=== PATIENT | male | born 1965 | race Caucasian/White ===

== ENCOUNTER 2020-10-06 16:43 | Emergency (ER) | payer OTHER ==
[~2020-10-06] VITALS: Ht 182.9 cm; Wt 117.9 kg
== END 2020-10-06 17:50 | disposition home or self-care (01) ==
LOC: ER 16:43
DX: K42.9 Umbilical hernia without obstruction or gangrene (principal); Z88.6 Allergy status to analgesic agent; Z88.5 Allergy status to narcotic agent
CPT/HCPCS: 99282

== ENCOUNTER 2020-12-21 06:42 | Day surgery (SDC) | payer OTHER ==
[~2020-12-21] VITALS: Ht 185.4 cm; Wt 134.4 kg
--- NOTE | 2020-12-21 13:22 | NUR ---
1318 PT HERE FROM PACU PT IS CRYING IN PAIN 8/10 TO RT SHOULDER PT MEDICATED WITH FENTANYL 50MCG IV PT STATES SHOULDER PAIN IS 8/10 ABD PAIN 6/10. PT POSITION ADJUSTED AND SOME ROM DONE TO RT SHOULDER PT STATES THAT IT HELPED ALOT
--- NOTE | 2020-12-21 14:42 | NUR ---
Discharge instructions reviewed with patient. Patient verbalizes understanding. Copy given to patient to take home. Dressing to procedure site clean, dry, intact with no visible drainage, swelling, erythema or bruising noted. Patient States Post-Procedure ride home has been arranged. Discharged via wheelchair to private car for ride home.
--- NOTE | 2020-12-21 15:20 | NUR ---
12/21/20 1520 Alisha Soriano VERIFICATIONS: EDIT CHART.
== END 2020-12-21 23:42 | disposition home or self-care (01) ==
LOC: ORSCMMR 06:42
PROVIDERS: Surgery
PROC: 0YU54JZ Supplement Right Inguinal Region with Synthetic Substitute, Percutaneous Endoscopic Approach (ICD-10-PCS; principal; 2020-12-21 08:30)
PROC: 0WUF4JZ Supplement Abdominal Wall with Synthetic Substitute, Percutaneous Endoscopic Approach (ICD-10-PCS; principal; 2020-12-21 08:30)
PROC: 8E0W4CZ Robotic Assisted Procedure of Trunk Region, Percutaneous Endoscopic Approach (ICD-10-PCS; principal; 2020-12-21 08:30)
DX: K40.30 Unilateral inguinal hernia, with obstruction, without gangrene, not specified as recurrent (principal); K42.0 Umbilical hernia with obstruction, without gangrene; G47.33 Obstructive sleep apnea (adult) (pediatric); Z87.891 Personal history of nicotine dependence; K21.9 Gastro-esophageal reflux disease without esophagitis; E66.01 Morbid (severe) obesity due to excess calories; Z68.39 Body mass index [BMI] 39.0-39.9, adult; Z79.899 Other long term (current) drug therapy
CPT/HCPCS: 49650; 49653; S2900; 94660; A9270; C1781; J0690; J1100; J1885; J2250; J2405; J2704; J3010; J7120

== ENCOUNTER → 2021-02-02 | Outpatient (CLI) | payer OTHER | END | disposition home or self-care (01) | LOC: LAB SHORT 19:06 | DX: N39.0 Urinary tract infection, site not specified (principal) | CPT/HCPCS: 87077; 87086; 87186 ==

== ENCOUNTER 2024-12-02 07:16 | Day surgery (SDC) | payer OTHER ==
[~2024-12-02] VITALS: Ht 185.4 cm; Wt 122.0 kg
[2024-12-02 09:42] VITALS: BP 117/87
== END 2024-12-02 09:56 | disposition home or self-care (01) ==
LOC: ORSCSDS 07:16
PROC: 0DBN8ZX Excision of Sigmoid Colon, Via Natural or Artificial Opening Endoscopic, Diagnostic (ICD-10-PCS; principal; 2024-12-02)
PROC: 0DBP8ZX Excision of Rectum, Via Natural or Artificial Opening Endoscopic, Diagnostic (ICD-10-PCS; principal; 2024-12-02)
PROC: 0DBK8ZX Excision of Ascending Colon, Via Natural or Artificial Opening Endoscopic, Diagnostic (ICD-10-PCS; principal; 2024-12-02)
DX: Z12.11 Encounter for screening for malignant neoplasm of colon (principal); Z86.0100 Personal history of colon polyps, unspecified; Z80.0 Family history of malignant neoplasm of digestive organs; D12.2 Benign neoplasm of ascending colon; K63.5 Polyp of colon; K62.1 Rectal polyp; K57.30 Diverticulosis of large intestine without perforation or abscess without bleeding; F17.210 Nicotine dependence, cigarettes, uncomplicated; G47.33 Obstructive sleep apnea (adult) (pediatric); E66.9 Obesity, unspecified; K21.9 Gastro-esophageal reflux disease without esophagitis; Z68.35 Body mass index [BMI] 35.0-35.9, adult; I10 Essential (primary) hypertension